=== PATIENT | male | born 1965 | race Caucasian/White ===

== ENCOUNTER → 2017-01-16 | Outpatient (CLI) | payer BC ==
--- NOTE | 2017-01-17 12:40 | ECHOCARDIOGRAPHY REPORT ---
PROCEDURE PHYSICIAN: ANY BARRAGAN DATE OF PROCEDURE: 01/16/2017 TWO DIMENSIONAL ECHOCARDIOGRAM REPORT PRIMARY PHYSICIAN: OTHER PHYSICIAN: REFERRING PHYSICIAN: Dr. Kapil White ORDERING PHYSICIAN: INDICATION FOR THE PROCEDURE: Chest pain MEASUREMENTS DERIVED VALUES LV DIAMETER (LAX) NORMALS NORMALS Diastolic 4.7 (3.6-5.2) Eject. Fract. 60% (60%+/-6%) Systolic (2.3-3.9) Diastolic Vol. % Shortening (0.22-0.42) Systolic Vol. Aortic Root IVS THICKNESS Diastolic 0.9 (0.6-1.1) LVPW THICKNESS Diastolic 1. (0.6-1.1) LA DIAMETER Systolic 3.8 (2.1-3.7) FINDINGS: 1. Technically difficult study. 2. The left ventricle is normal in size, systolic function appeared to be normal. Estimated ejection fraction 60%. 3. The left atrium is normal in size. No clot or thrombus were seen within the left atrium. 4. The right atrium and right ventricle are normal in size. No clot or thrombus were seen within the right side. 5. Mitral valve is normal in morphology with mild mitral regurgitation noted by color Doppler flow. No mitral valve prolapse. No mitral valve stenosis. 6. Aortic valve leaflets were not well visualized. There is no significant aortic stenosis or regurgitation was seen. 7. Tricuspid valve is normal in morphology with mild tricuspid regurgitation noted by color Doppler flow. Doppler across tricuspid valve estimated pulmonary artery pressure of 38+ right atrial pressure. 8. Pulmonic valve is functioning normally. 9. No pericardial effusion. CONCLUSION: 1. Normal left ventricular size, endocardium was not well visualized in all segments. Estimated ejection fraction 60%. Diastolic dysfunction is suggested by Doppler. 2. Mild mitral and tricuspid regurgitation. 3. Estimated pulmonary artery pressure of 45 mmHg. Job ID: [id number] Dictated Date: 01/17/2017 10:03:49 Butt Trimmer Date: 01/17/2017 12:36:21 / alvaro
== END ==
LOC: CARD 15:02
PROVIDERS: ATTEND Internal Medicine Cardiovascular Disease
DX: R07.89 Other chest pain (principal); E78.2 Mixed hyperlipidemia; I10 Essential (primary) hypertension; E11.9 Type 2 diabetes mellitus without complications; Z72.0 Tobacco use
CPT/HCPCS: 93306

== ENCOUNTER → 2021-02-17 | Outpatient (CLI) | payer SELFPAY | LOC: CARD 09:14 | PROVIDERS: ATTEND Internal Medicine Cardiovascular Disease | DX: I11.9 Hypertensive heart disease without heart failure (principal); I25.10 Atherosclerotic heart disease of native coronary artery without angina pectoris | CPT/HCPCS: 93225; 93226; 93306 ==

== ENCOUNTER → 2021-04-05 | Outpatient (CLI) | payer OTHER ==
[~2021-04-05] VITALS: Ht 177 cm; Wt 126.0 kg
[~2021-04-05] MED LIST: CATHETER FLUSH 10 ML SYR IV PRN; REGADENOSON 0.4 MG/5 ML SYR (LEXISCAN) IV ONE
[2021-04-05 08:57] VITALS: BP 160/74
--- NOTE | 2021-04-06 12:55 | Cardiology Stress Test Report ---
Stress Test Report Date of Procedure/Referring: Date of Procedure: Apr 05, 2021 PCP Any Maddox MD Admitting Physician Kapil White DO Indications: HTN Baseline Heart Rate: 104 Baseline Blood Pressure: Blood Pressure Systolic: 160 Blood Pressure Diastolic: 74 Vital Signs Date Time Temp Pulse Resp B/P (MAP) Pulse Ox O2 Delivery O2 Flow Rate FiO2 04/05/21 08:57 104 16 160/74 (102) 98 Room Air Baseline Vital Signs Vital Signs Date Time Temp Pulse Resp B/P (MAP) Pulse Ox O2 Delivery O2 Flow Rate FiO2 04/05/21 08:57 104 16 160/74 (102) 98 Room Air Baseline EKG: Baseline EKG: NSR Summary: After explaining the procedure and details to the patient, he signed the consent and was brought to the stress nuclear laboratory. Patient exercised on standard Sourav protocol, EKG, heart rate and blood pressure were monitored continuously, resting and stress doses of radio tracer were injected, imaging was acquired and reviewed in the short axis, horizontal long axis and vertical long axis views Patient was able to exercise for a total of 2.30 minutes on Sourav protocol, METs 4 Maximum heart rate 151 Maximum blood pressure 215/86 Stress EKG, Minimal nondiagnostic changes Recovery EKG, Return to baseline TID: 1.04 SSS: 1 SDS: 1 EF: 50 Conclusion: 1. Poor exercise tolerance, total of 2 minutes 30 seconds on standard Sourav protocol achieving maximum heart rate 151 which is 92% of maximal expected heart rate 2. Hypertensive response to exercise with peak blood pressure 215/86 return to baseline during recovery 3. Minimal nondiagnostic EKG changes with exercise return to baseline during recovery 4. No significant ischemia or infarction on SPECT images 5. Normal left ventricular size, EF 50% ANY MADDOX MD Apr 06, 2021 12:55
== END ==
LOC: CARD 07:30
PROVIDERS: ATTEND Internal Medicine Cardiovascular Disease
DX: I10 Essential (primary) hypertension (principal); I25.10 Atherosclerotic heart disease of native coronary artery without angina pectoris
CPT/HCPCS: 78452; 93017; A9502

== ENCOUNTER → 2021-04-13 | Outpatient (CLI) | payer OTHER ==
[~2021-04-13] MED LIST changes: -CATHETER FLUSH 10 ML SYR IV PRN; +HOLD METFORMIN - RECEIVED CONTRAST 20 ML VIAL IV SCH; +IOHEXOL 350 MG/ML 100 ML (OMNIPAQUE 350) VIAL IV ONE; +NS 100 ML (IVPB) BAG IV ONE; -REGADENOSON 0.4 MG/5 ML SYR (LEXISCAN) IV ONE
[2021-04-13 13:13] LABS: BUN/CREATININE RATIO 16; CREATININE SERUM 0.74 MG/DL (0.60-1.30); GFR ESTIMATED > 60
[2021-04-13] MEDS: CATHETER FLUSH 10 ML SYR IV PRN (13:56)
--- NOTE | 2021-04-13 14:43 | Diagnostic Imaging Report ---
PROCEDURE: CT angiography of the chest with contrast. TECHNIQUE: Multiple contiguous axial images were obtained through the chest after uneventful bolus administration of intravenous contrast. 3D reconstructed CTA MIP acquisitions were also performed. Auto Exposure Controls were utilized during the CT exam to meet ALARA standards for radiation dose reduction. INDICATION: Syncope. COMPARISON: No prior studies are available for comparison. FINDINGS: Evaluation of the pulmonary arterial system is without evidence of thromboembolism. No filling defects are seen within central, lobar or segmental branches. Thoracic aorta is normal caliber. No dissection is seen. There is no pericardial or pleural fluid identified. No pulmonary infiltrates, nodules or masses are identified. The upper abdomen is unremarkable. IMPRESSION: Unremarkable CT angiogram of the chest. There is no evidence of pulmonary embolism or thoracic aortic dissection. Dictated by: Dictated on workstation # [id number]
== END ==
LOC: RAD 13:30
PROVIDERS: ATTEND Physician Assistant
DX: R00.0 Tachycardia, unspecified (principal); R55 Syncope and collapse
CPT/HCPCS: 36415; 71275; 82565; 84520

== ENCOUNTER → 2021-04-17 | Outpatient (CLI) | payer OTHER ==
[2021-04-17] VITALS (31 sets, daily range): BP systolic 110–179; BP diastolic 81–118
--- NOTE | 2021-04-17 11:24 | Cardiology Tilt Table Test ---
Cardiology-Tilt Table Test Tilt Table Test Date 04/17/21 Baseline Vitals Vital Signs Date Time Temp Pulse Resp B/P (MAP) Pulse Ox O2 Delivery O2 Flow Rate FiO2 04/17/21 10:39 101 179/94 (122) 97 Vital Signs VS - Last 72 Hours, by Label 04/17/21 04/17/21 04/17/21 04/17/21 10:39 10:40 10:42 10:43 Pulse 101 115 113 112 B/P (MAP) 179/94 (122) 150/103 (119) 148/96 (113) 154/104 (121) Pulse Ox 97 97 97 96 04/17/21 04/17/21 04/17/21 04/17/21 10:44 10:45 10:46 10:47 Pulse 105 110 113 113 B/P (MAP) 168/101 (123) 160/101 (120) 161/98 (119) 174/98 (123) Pulse Ox 96 96 98 96 04/17/21 04/17/21 04/17/21 04/17/21 10:48 10:49 10:50 10:51 Pulse 111 115 100 112 B/P (MAP) 174/90 (118) 169/91 (117) 161/96 (117) 176/100 (125) Pulse Ox 97 96 97 98 04/17/21 04/17/21 04/17/21 04/17/21 10:52 10:53 10:54 10:55 Pulse 112 123 125 111 B/P (MAP) 156/118 (131) 110/81 (91) 127/95 (106) 139/82 (101) Pulse Ox 98 99 98 98 04/17/21 04/17/21 04/17/21 04/17/21 10:56 10:57 10:58 10:59 Pulse 144 134 130 128 B/P (MAP) 139/82 (101) 138/93 (108) 132/97 (109) 132/97 (109) Pulse Ox 96 96 96 96 04/17/21 04/17/21 04/17/21 04/17/21 11:00 11:01 11:02 11:03 Pulse 125 117 120 120 B/P (MAP) 144/93 (110) 151/94 (113) 133/91 (105) 133/91 (105) Pulse Ox 96 96 96 96 04/17/21 04/17/21 04/17/21 04/17/21 11:04 11:05 11:06 11:07 Pulse 114 116 121 109 B/P (MAP) 161/94 (116) 153/90 (111) 153/90 (111) 161/95 (117) Pulse Ox 96 96 96 96 04/17/21 04/17/21 04/17/21 11:08 11:09 11:10 Pulse 120 116 126 B/P (MAP) 145/98 (114) 156/113 (127) 156/113 (127) Pulse Ox 96 96 96 Patient was tilted to 75 degrees for [10] minutes, then returned to supine position, given [2] sublingual nitroglycerin tablets, then tilted again to 75 degrees for [15] minutes. During test, patient was: symptomatic (with dizziness and lightheadedness) In Conclusion;: Negative Tilt Table Test Patient had mild orthostatic hypotension with BP going from 156/118 to 110/81 with dizziness and lightheadedness. No syncope. Norvasc was discontinued 1 week ago and patient reporting some improvement in symptoms with no further syncope. Will continue on current medications and continue to monitor. Recommend use of YADI hose. This is Marla Ventura PA-C, as a scribe for Dr. Maddox. MARLA GARCIA Apr 17, 2021 11:24
== END ==
LOC: CARD 10:30
PROVIDERS: ATTEND Internal Medicine Cardiovascular Disease
DX: R00.0 Tachycardia, unspecified (principal); R55 Syncope and collapse; R06.02 Shortness of breath
CPT/HCPCS: 93660

== ENCOUNTER → 2021-06-30 | Outpatient (CLI) | payer OTHER | LOC: CARD 08:28 | PROVIDERS: ATTEND Internal Medicine Cardiovascular Disease | DX: I11.9 Hypertensive heart disease without heart failure (principal); I25.10 Atherosclerotic heart disease of native coronary artery without angina pectoris | CPT/HCPCS: 93306 ==

== ENCOUNTER → 2021-10-09 | Outpatient (CLI) | payer OTHER ==
[~2021-10-09] MED LIST changes: +CATHETER FLUSH 10 ML SYR IV PRN
[2021-10-09 09:06] LABS: CREATININE SERUM 0.78 MG/DL (0.60-1.30)
--- NOTE | 2021-10-09 11:14 | Diagnostic Imaging Report ---
CTA renal arteries. Indication: Hypertension EXAMINATION: Contiguous axial images were taken from the dome of the diaphragm to the iliac crest. Both oral and intravenous contrast were administered. There are no prior CTA renal artery examinations available for comparison. The aorta is not abnormally dilated and there is no sign of a dissection. There is scattered atherosclerotic plaque throughout the aorta. There is a single renal artery each kidney. There is no evidence for renal artery stenosis. There is no evidence for a hemodynamically significant stenosis of the celiac axis, the superior mesenteric artery, the inferior mesenteric artery or the common iliac arteries. The kidneys themselves are normal in size and appearance. There is no evidence for a solid or mass or for nephrolithiasis. Both kidneys do show excretion of the contrast. There is no acute abnormality of the abdomen or pelvis noted. The liver is prominent but not enlarged. The gallbladder surgically absent. The spleen, pancreas, adrenals, inferior vena cava and portal vein show no sign of an acute abnormality. The stomach is not well distended and difficult to assess. There is no pelvic mass or free fluid collection evident. There are numerous diverticula in the sigmoid colon but there is no sign of acute diverticulitis. The appendix was visualized and is not abnormally thickened. The urinary bladder and prostate gland are grossly unremarkable. The bone windows show no sign of a fracture or for destructive lesion. Impression: 1. There is scattered atherosclerotic plaque throughout the aorta but the aorta is not abnormally dilated and there is no sign of a dissection. 2. There is no hemodynamically significant stenosis of either renal artery or the other major branches of the aorta. 3. There is no acute abnormality abdomen or pelvis. Dictated by: Dictated on workstation # [id number]
== END ==
LOC: RAD 09:15
PROVIDERS: ATTEND Physician Assistant
DX: I70.0 Atherosclerosis of aorta (principal); I10 Essential (primary) hypertension
CPT/HCPCS: 36415; 74175; 82565; 84520

== ENCOUNTER 2021-10-26 05:37 | Outpatient (CLI) | payer SELFPAY ==
[~2021-10-26] VITALS: Ht 177.8 cm; Wt 123.2 kg
[2021-10-26] MEDS ORDERED: GBPN600T PO (14:00)
[2021-10-26] MEDS ORDERED: DIPH25CA79 PO (14:00)
[2021-10-26] MEDS ORDERED: LOSA50TA63 PO (14:00)
[2021-10-26] MEDS ORDERED: ASPI-1238 PO (14:00)
[2021-10-26] MEDS ORDERED: FEXO180T84 PO (14:00)
[2021-10-26] MEDS ORDERED: CANA300T PO (14:00)
[2021-10-26] MEDS ORDERED: MINO2.5T PO (14:00)
[2021-10-26] MEDS ORDERED: SEMA7TAB PO (14:00)
[2021-10-26] MEDS ORDERED: METF-399 PO (14:00)
[2021-10-26] MEDS ORDERED: OMG1KC PO (14:00)
[2021-10-26] MEDS ORDERED: SIMV10TA26 PO (14:00)
[2021-10-26] MEDS ORDERED: METO-351 PO (14:00)
[2021-10-26] MEDS ORDERED: RT-ALBUINH IH (14:00)
== END 2021-10-26 14:32 | disposition home or self-care (01) ==
LOC: PREOP 05:37
PROVIDERS: ATTEND Surgery
DX: Z01.818 Encounter for other preprocedural examination (principal)

== ENCOUNTER 2021-11-14 10:57 | Day surgery (SDC) | payer OTHER ==
[~2021-11-14] VITALS: Ht 177 cm; Wt 123.0 kg
[~2021-11-14 10:57] MED LIST changes: +ASPI-1238 PO; +CANA300T PO; -CATHETER FLUSH 10 ML SYR IV PRN; +DIPH25CA79 PO; +FEXO180T84 PO; +GBPN600T PO; -HOLD METFORMIN - RECEIVED CONTRAST 20 ML VIAL IV SCH; -IOHEXOL 350 MG/ML 100 ML (OMNIPAQUE 350) VIAL IV ONE; +LOSA50TA63 PO; +METF-399 PO; +METO-351 PO; +MINO2.5T PO; -NS 100 ML (IVPB) BAG IV ONE; +OMG1KC PO; +RT-ALBUINH IH; +SEMA7TAB PO; +SIMV10TA26 PO
[2021-11-14] MEDS ORDERED: LACTATED RINGERS 1,000 ML IV ONE (11:00)
[2021-11-14] MEDS ORDERED: LACTATED RINGERS 1,000 ML IV STA (11:00)
--- NOTE | 2021-11-14 11:04 | Progress Note-Pre Operative ---
Pre-Operative Progress Note H&P Reviewed The H&P was reviewed, patient examined and no changes noted. Date Seen by Provider: Nov 14, 2021 Time Seen by Provider: 11:04 Date H&P Reviewed: Nov 14, 2021 Time H&P Reviewed: 11:04 Pre-Operative Diagnosis: screening colonoscopy TRUDI MCCABE DO Nov 14, 2021 11:04
[2021-11-14 11:10] VITALS: BP 205/110
[2021-11-14] MEDS ORDERED: PROPOFOL INJECTION 50 ML IV ONE ×2 (12:32→12:48)
--- NOTE | 2021-11-14 13:08 | Anesthesia-General Post-Op ---
MAC Patient Condition Mental Status/LOC: Same as Preop Cardiovascular: Satisfactory Nausea/Vomiting: Absent Respiratory: Satisfactory Pain: Controlled Complications: Absent Post Op Complications Complications None Follow Up Care/Instructions Patient Instructions None needed. Anesthesiology Discharge Order Discharge Order Patient is doing well, no complaints, stable vital signs, no apparent adverse anesthesia problems. No complications reported per nursing. PABLO CHEN CRNA Nov 14, 2021 13:08
[2021-11-14 13:13] VITALS: BP 134/83
[2021-11-14 13:15] VITALS: BP 159/95
[2021-11-14 13:40] VITALS: BP 169/100
[2021-11-14 13:45] VITALS: BP 169/100
--- NOTE | 2021-11-14 21:14 | OPERATIVE REPORT ---
DATE OF SERVICE: 11/14/2021 PREOPERATIVE DIAGNOSIS: Screening colonoscopy. POSTOPERATIVE DIAGNOSIS: Normal colon. PROCEDURE: Colonoscopy. SURGEON: Trudi Barrett DO ANESTHESIA: Per TRANSPORT TANK TECHNICIAN. ESTIMATED BLOOD LOSS: None. COMPLICATIONS: None. INDICATIONS: The patient is a 56-year-old male needing screening colonoscopy. He understands risks and benefits of procedure and wishes to proceed. Consent was signed in the chart. DESCRIPTION OF PROCEDURE: The patient was taken to the endoscopy suite, placed in left lateral recumbent position. Timeout was performed. Digital rectal exam was performed. No palpable polyps, masses or ulcerations. Some slight skin tags at the anus opening. Scope was inserted in the rectum and advanced all the way to the cecum with minimal difficulty. Prep was adequate. Scope was slowly retracted back. There were no polyps, masses or ulcerations in the cecum, ascending, transverse, descending and sigmoid colon. Once in the rectum, scope was retroflexed noting no other pathology. Scope was returned to its normal position, slowly withdrawn until completely removed. The patient tolerated the procedure well without any complications, taken to recovery room in stable condition. RECOMMENDATIONS: The patient will need repeat colonoscopy in 10 years unless family history of colon cancer or personal history of colon polyps, which would then be 5 years. Any issues before that be seen at that time. CC: FRANCO Clark - requested, unable to deliver Job ID: [id number] DocumentID: [id number] Dictated Date: 11/14/2021 18:56:32 Fleet Salesperson Date: 11/14/2021 21:13:33 Dictated By: TRUDI BARRETT DO
== END 2021-11-14 13:45 | disposition home or self-care (01) ==
LOC: ENDO 10:57
PROVIDERS: ATTEND Surgery
DX: Z12.11 Encounter for screening for malignant neoplasm of colon (principal); I10 Essential (primary) hypertension; E11.9 Type 2 diabetes mellitus without complications; J44.9 Chronic obstructive pulmonary disease, unspecified; E66.01 Morbid (severe) obesity due to excess calories; F17.210 Nicotine dependence, cigarettes, uncomplicated; Z79.899 Other long term (current) drug therapy; Z79.82 Long term (current) use of aspirin; Z68.39 Body mass index [BMI] 39.0-39.9, adult; Z79.84 Long term (current) use of oral hypoglycemic drugs
CPT/HCPCS: 82947

== ENCOUNTER → 2022-05-09 | Outpatient (CLI) | payer OTHER ==
[~2022-05-09] MED LIST changes: -SEMA7TAB PO; +SEMA7TAB2 PO
== END ==
LOC: CARD 10:31
PROVIDERS: ATTEND Internal Medicine Cardiovascular Disease
DX: I48.0 Paroxysmal atrial fibrillation (principal)

== ENCOUNTER → 2023-07-17 | Outpatient (CLI) | payer OTHER ==
[~2023-07-17] MED LIST changes: +ALBU8.5H6 IH; -RT-ALBUINH IH
== END ==
LOC: CANPRECLI → CARD 10:35
PROVIDERS: ATTEND Internal Medicine Cardiovascular Disease
DX: I11.9 Hypertensive heart disease without heart failure (principal)
CPT/HCPCS: 93306